=== PATIENT | female | born 1990 | race Caucasian/White ===

== ENCOUNTER → 2024-11-22 17:14 | Outpatient (REF) | payer BC, SELFPAY ==
[2024-11-22 17:43] LABS: % Basophils 0.4 % (0-2); % Eosinophils 0.3 % (0-6); % Immature Granulocytes 0.3 % (0-0.5); % Lymphocytes 32.7 % (20.5-51.1); % Monocytes 6.8 % (1.7-9.3); % Neutrophils 59.5 % (42.2-75.2); Absolute Lymphocytes 3.1 10^3/uL (1.2-3.4); Absolute Monocytes 0.7 10^3/uL (0.1-0.6); Absolute Neutrophils 5.7 10^3/uL (1.4-6.5); Hematocrit 39.5 % (37.0-47.0); Mean Corp Hgb Conc. 35.4 g/dL (33.0-37.0); Mean Corpuscular Hgb 31.5 pg (27.0-31.0); Mean Platelet Volume 9.4 fL (7.4-10.4); Nucleated Red Blood Cells % 0 %; Platelet Count 341 10^3/uL (130-400); Red Blood Cell Count 4.44 10^6/uL (4.20-5.40); Red Cell Dist. Width 12.1 % (11.5-14.5); White Blood Cell Count 9.6 10^3/uL (4.8-10.8)
[2024-11-22 17:54] LABS: ALT (SGPT) 24 U/L (0-35); AST (SGOT) 19 U/L (14-36); Albumin 5.2 g/dl (3.5-5.0); Alkaline Phosphatase 54 U/L (38-126); Blood Urea Nitrogen 13 mg/dl (7-17); Calcium 10.2 mg/dl (8.4-10.2); Carbon Dioxide 27 mmol/L (22-30); Chloride 99 mmol/L (98-107); Glucose 77 mg/dl (70-99); Potassium 4.4 mmol/L (3.5-5.1); Sodium 139 mmol/L (135-145); Total Bilirubin 1.6 mg/dl (0.2-1.3); Total Protein 8.1 g/dl (6.3-8.2); eGFR > 60.00
[2024-11-22 18:16] LABS: Microalbumin, Random Urine < 0.6 mg/dl (0.6-1.7)
[2024-11-22 18:24] LABS: TSH 1.88 uIU/ml (0.47-4.68)
[2024-11-23 10:50] LABS: Glycohemoglobin (HgbA1c) 5.5 % (4.0-5.6)
== END ==
LOC: REG 17:14
PROVIDERS: ATTENDING PHYSICIAN Physician Assistant Medical
DX: F41.9 Anxiety disorder, unspecified (principal); E11.9 Type 2 diabetes mellitus without complications; R63.2 Polyphagia; E66.01 Morbid (severe) obesity due to excess calories
CPT/HCPCS: 36415; 80053; 82043; 82570; 83036; 84443; 85025

== ENCOUNTER → 2025-01-01 07:00 | Outpatient (REF) | payer BC, SELFPAY ==
[2025-01-01 09:20] LABS: HDL Cholesterol 63 mg/dl; LDL Cholesterol, Calculated 98 mg/dl; Total Cholesterol 182 mg/dl (50-199); Triglyceride 105 mg/dl (10-149); Very Low Density Lipoprotein 21 mg/dl (0-30)
== END ==
LOC: REG 07:00
PROVIDERS: ATTENDING PHYSICIAN Physician Assistant Medical
DX: E11.9 Type 2 diabetes mellitus without complications (principal); R00.2 Palpitations; Z00.00 Encounter for general adult medical examination without abnormal findings
CPT/HCPCS: 36415; 80061

== ENCOUNTER → 2025-01-11 14:37 | Outpatient (REF) | payer BC, SELFPAY | LOC: CLAB 14:37 | PROVIDERS: ATTENDING PHYSICIAN Nurse Practitioner Family | DX: Z11.3 Encounter for screening for infections with a predominantly sexual mode of transmission (principal) | CPT/HCPCS: 87491; 87591 ==

== ENCOUNTER → 2025-08-05 07:37 | Outpatient (REF) | payer BC, SELFPAY ==
[2025-08-05 09:29] LABS: Glycohemoglobin (HgbA1c) 5.7 % (4.0-5.9)
[2025-08-05 10:14] LABS: ALT (SGPT) 41 U/L (0-35); AST (SGOT) 23 U/L (14-36); Albumin 4.5 g/dl (3.5-5.0); Alkaline Phosphatase 50 U/L (38-126); Blood Urea Nitrogen 12 mg/dl (7-17); Calcium 9.8 mg/dl (8.4-10.2); Carbon Dioxide 26 mmol/L (22-30); Chloride 105 mmol/L (98-107); Glucose 118 mg/dl (70-99); Potassium 5.1 mmol/L (3.5-5.1); Sodium 137 mmol/L (135-145); Total Protein 7.9 g/dl (6.3-8.2); eGFR > 60.00
== END ==
LOC: REG 07:37
PROVIDERS: ATTENDING PHYSICIAN Physician Assistant Medical
DX: F41.9 Anxiety disorder, unspecified (principal); E11.9 Type 2 diabetes mellitus without complications
CPT/HCPCS: 36415; 80053; 83036

== ENCOUNTER 2025-08-30 15:37 | Emergency (ER) | payer BC, SELFPAY ==
[2025-08-30 16:07] VITALS: BP 120/82
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
[2025-08-30] MEDS: TYLENOL 1000 MG PO (19:15)
[2025-08-30] MEDS: MOTRIN 600 MG PO (19:15)
== END 2025-08-30 19:19 | disposition home or self-care (01) ==
LOC: EMR 15:37
PROVIDERS: EMERGENCY PHYSICIAN Emergency Medicine; FAMILY PHYSICIAN Physician Assistant Medical
DX: S00.11XA Contusion of right eyelid and periocular area, initial encounter (principal); S00.03XA Contusion of scalp, initial encounter; S62.632A Displaced fracture of distal phalanx of right middle finger, initial encounter for closed fracture; Y04.0XXA Assault by unarmed brawl or fight, initial encounter; K21.9 Gastro-esophageal reflux disease without esophagitis; F17.200 Nicotine dependence, unspecified, uncomplicated
CPT/HCPCS: 99284; 70450; 70480; 73140